=== PATIENT | male | born 1970 | race African-American/Black ===

== ENCOUNTER 2016-11-10 12:59 | Emergency (ER) | payer SELFPAY ==
[2016-11-10 13:21] VITALS: BP 190/106
--- NOTE | 2016-11-10 13:51 | ER Document Report ---
HPI - HPI Patient complains to provider of: Right eyelid swelling Onset: Other - 3 days Onset/Duration: Persistent Quality of pain: Achy Pain Level: 4 Context: Patient presents complaining of right eyelid swelling for the past 3 days. Patient also complains of right shoulder joint pain for several months. Patient also states he has a history of hypertension has been out of medication as he does not currently have insurance. Patient denies any new shoulder injury. Patient denies any contact lens use. Patient does state that he has previous history of stye to his right eyelid that previously required surgery. Associated Symptoms: Other - Right eyelid swelling, right shoulder joint pain Exacerbated by: Movement Relieved by: Denies Similar symptoms previously: Yes Recently seen / treated by doctor: No - ROS ROS below otherwise negative: Yes Systems Reviewed and Negative: Yes All other systems reviewed and negative - CONSTITUTIONAL Constitutional: DENIES: Fever, Chills - EENT EENT: REPORTS: Eye problems - NEURO Neurology: DENIES: Headache - CARDIOVASCULAR Cardiovascular: DENIES: Chest pain - RESPIRATORY Respiratory: DENIES: Trouble Breathing, Coughing - GASTROINTESTINAL Gastrointestinal: DENIES: Abdominal Pain - MUSCULOSKELETAL Musculoskeletal: REPORTS: Extremity pain. 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 Lives with: Family Family History: Reviewed & Not Pertinent Patient has suicidal ideation: No Patient has homicidal ideation: No - Past Medical History Cardiac Medical History: Reports: Hx Hypertension - NOT ON MEDS BECAUSE THEY ARE TOO EXPENSIVE Renal/ Medical History: Denies: Hx Peritoneal Dialysis Infectious Medical History: Denies: Hx MRSA Past Surgical History: Reports: Hx Herniorrhaphy - Immunizations Immunizations up to date: Yes Hx Diphtheria, Pertussis, Tetanus Vaccination: Yes Vertical Provider Document - CONSTITUTIONAL Agree With Documented VS: Yes Exam Limitations: No Limitations General Appearance: WD/WN, No Apparent Distress - INFECTION CONTROL TRAVEL OUTSIDE OF THE [place] IN LAST 30 DAYS: No - HEENT HEENT: Atraumatic, Normocephalic - NECK Neck: Normal Inspection, Supple - RESPIRATORY Respiratory: Breath Sounds Normal, No Respiratory Distress O2 Sat by Pulse Oximetry: 99 - CARDIOVASCULAR Cardiovascular: Regular Rate, Regular Rhythm Pulses: Normal: Radial - BACK Back: Normal Inspection - MUSCULOSKELETAL/EXTREMETIES Musculoskeletal/Extremeties: MAEW, FROM, Tender - Right shoulder joint tenderness over AC joint with abduction, no deformity or dislocation Course - Re-evaluation Re-evalutation: 11/10/16 13:54 The patient has been informed that they may have pre-hypertension or hypertension based on a blood pressure reading in the emergency department. I recommend that patient call the primary care provider listed on their discharge instructions or a physician of their choice by this week to arrange follow-up for further evaluation of possible pre-hypertension or hypertension. - Vital Signs Vital signs: Temp Pulse Resp BP Pulse Ox 98.5 F 81 16 190/106 H 99 11/10/16 13:12 11/10/16 13:12 11/10/16 13:12 11/10/16 13:12 11/10/16 13:12 - Diagnostic Test Radiology reviewed: Reports reviewed - Reviewed patient's x-ray report of his shoulder joint from 08/03/2015 Discharge - Discharge Clinical Impression: Hx of essential hypertension, Chronic right shoulder pain Sty Qualifiers: Laterality: right Eyelid: upper Qualified Code(s): H00.011 - Hordeolum externum right upper eyelid Condition: Stable Disposition: HOME, SELF-CARE Instructions: High Blood Pressure ([facility]), Shoulder Injury ([facility]), Sty ([facility]), Warm Packs ([facility]) Additional Instructions: Return immediately for any new or worsening symptoms Followup with your primary care provider, call tomorrow to make a followup appointment Follow-up with control systems specialist for any continued eye problems Apply warm compresses to eye frequently Follow-up with orthopedic doctor for further evaluation of chronic shoulder joint pain Prescriptions: Erythromycin Base [Erythromycin] 1 applic OP QID #3.5 oint..gm. Lisinopril/Hydrochlorothiazide [Lisinopril-Hctz 10-12.5 mg Tab] 1 each PO DAILY #30 tablet Forms: Elevated Blood Pressure, Return to Work Referrals: [facility] [Provider Group] - Follow up as needed [facility] [Provider Group] - Follow up in 1 week [facility] [Provider Group] - Follow up tomorrow [facility] [Provider Group] - Follow up tomorrow
== END 2016-11-10 14:18 | disposition home or self-care (01) ==
LOC: ER 12:59
DX: H00.011 Hordeolum externum right upper eyelid (principal); G89.29 Other chronic pain; M25.511 Pain in right shoulder; I10 Essential (primary) hypertension; T46.5X6A Underdosing of other antihypertensive drugs, initial encounter; Z91.120 Patient's intentional underdosing of medication regimen due to financial hardship; Z91.14 Patient's other noncompliance with medication regimen; Z98.890 Other specified postprocedural states
CPT/HCPCS: 99283

== ENCOUNTER 2017-07-09 21:20 | Emergency (ER) | payer SELFPAY ==
--- NOTE | 2017-07-09 22:56 | ER Document Report ---
ED General - General Chief Complaint: High Blood Pressure Stated Complaint: POSSIBLE HIGH BLOOD PRESSURE Time Seen by Provider: 07/09/17 22:53 Notes: Patient is a 47-year-old male who presents with complaint of intermittent headache for last 3 days. Gradual onset. It was relieved with BC powder. He also has had some intermittent mild chest pain left side. Says it is not severe. Says mild. It is not exacerbated by exertion. No associated shortness of breath or diaphoresis. Patient says blood pressures been running high. He has been on blood pressure medication but spent several months since she has had any. He does not have a local doctor. He said he [facility] but does not see them anymore. He does not remember the name of the blood pressure medications he used to be on. He has no history of cardiac disease. He has no other medical problems other than high blood pressure. No other complaints. He is currently chest pain-free. TRAVEL OUTSIDE OF THE [place] IN LAST 30 DAYS: No - Related Data Allergies/Adverse Reactions: No Known Allergies Allergy (Unverified 05/20/11 16:24) Past Medical History - Social History Smoking Status: Never Smoker Chew tobacco use (# tins/day): No Frequency of alcohol use: Rare Drug Abuse: None Family History: Reviewed & Not Pertinent Patient has suicidal ideation: No Patient has homicidal ideation: No - Past Medical History Cardiac Medical History: Reports: Hx Hypertension - NOT ON MEDS BECAUSE THEY ARE TOO EXPENSIVE Renal/ Medical History: Denies: Hx Peritoneal Dialysis Infectious Medical History: Denies: Hx MRSA Past Surgical History: Reports: Hx Herniorrhaphy - Immunizations Immunizations up to date: Yes Hx Diphtheria, Pertussis, Tetanus Vaccination: Yes Review of Systems - Review of Systems Notes: My Normal Review Basic REVIEW OF SYSTEMS: CONSTITUTIONAL : Denies fever, chills, or sweats. Denies recent illness. CARDIOVASCULAR: Chest pain RESPIRATORY: Denies cough, cold, or chest congestion. Denies shortness of breath, difficulty breathing, or wheezing. GASTROINTESTINAL: Denies abdominal pain. Denies nausea, vomiting, or diarrhea. Denies constipation. Last BM: GENITOURINARY: Denies difficulty urinating, painful urination, burning, frequency, or blood in urine. MUSCULOSKELETAL: Denies neck or back pain or joint pain or swelling. SKIN: Denies rash or skin lesions. NEUROLOGICAL: Denies altered mental status or loss of consciousness. Intermittent headache. Denies weakness or paralysis or loss of use of either side. Denies problems with gait or speech. Denies sensory or motor loss. ALL OTHER SYSTEMS REVIEWED AND NEGATIVE. Physical Exam - Vital signs Vitals: Temp Pulse Resp BP Pulse Ox 98.0 F 73 16 179/111 H 97 07/09/17 21:30 07/09/17 21:30 07/09/17 21:30 07/09/17 21:30 07/09/17 21:30 - Notes Notes: General Appearance: Well nourished, alert, cooperative, no acute distress, no obvious discomfort. Well-appearing. Vitals: reviewed, See vital signs table. Head: no swelling or tenderness to the head Eyes: PERRL, EOMI, Conjuctiva clear Mouth: No decreasd moisture Lungs: No wheezing, No rales, No rhonci, No accessory muscle use, good air exchange bilaterally. Heart: Normal rate, Regular rythm, No murmur, no rub Abdomen: Normal BS, soft, No rigidity, No abdominal tenderness, No guarding, no rebound, no abdominal masses, no organomegaly Extremities: strength 5/5 in all extremities, good pulses in all extremities, no swelling or tenderness in the extremities, no edema. Skin: warm, dry, appropriate color, no rash Neuro: speech clear, oriented x 3, normal affect, responds appropriately to questions. Cranial nerves II through XII are intact. Distal sensation intact. Patient moves all extremities without difficulty. Good strength in all 4 extremities. No focal neurologic deficits on exam. Course - Re-evaluation Re-evalutation: 07/10/17 05:36 Patient's laboratory evaluation was negative. His troponin is negative. He has no current chest pain and no current headache. I suspect that most likely her symptoms are related to his uncontrolled high blood pressure. I will place him on amlodipine and hydrochlorothiazide. Says he is followed by the [facility] has not been there in some time. He said they informed him if he calls him next appointment they would be able get him in being that he is already established. Patient said he would call to make a follow-up appointment. I talked to him and his at length about the importance of him taking his medications to help control his blood pressure as prolonged hypertension could eventually lead to stroke and [place]. Patient and his girlfriend show understanding of this and the patient agrees to start taking his medications as prescribed. I strongly encourage him return to ER if he has recurrent worsening chest pain, severe headache, vomiting, or feels unwell. Patient agrees with plan will be discharged home. Dictation of this chart was performed using voice recognition software; therefore, there may be some unintended grammatical errors. - Vital Signs Vital signs: Temp Pulse Resp BP Pulse Ox 98.0 F 73 18 171/106 H 98 07/09/17 21:30 07/09/17 21:30 07/10/17 00:01 07/10/17 00:01 07/10/17 00:01 - Laboratory Result Diagrams: 07/09/17 23:16 07/09/17 23:16 Laboratory results interpreted by me: 07/09/17 07/09/17 23:16 23:16 RBC 4.29 L Hgb 13.1 L Seg Neutrophils % 35.0 L Lymphocytes % 49.8 H Creatinine 1.33 H Est GFR (Non-Af Amer) 58 L - EKG Interpretation by Me Additional EKG results interpreted by me: 07/09/17 22:55 EKG is reviewed and interpreted by me. EKG shows sinus rhythm with a rate of [address] segment elevation or depression. Patient does have small T-wave inversion in lead V5. [place] interval, QRS duration, QTc intervals are within normal range. Old EKG for comparison is from May 20, 2015 shows the same T- wave inversion as a current EKG. Discharge - Discharge Clinical Impression: Hypertension Qualifiers: Hypertension type: unspecified Qualified Code(s): I10 - Essential (primary) hypertension Headache Qualifiers: Headache type: unspecified Headache chronicity pattern: episodic headache Intractability: not intractable Qualified Code(s): R51 - Headache Chest pain Qualifiers: Chest pain type: unspecified Qualified Code(s): R07.9 - Chest pain, unspecified Condition: Good Disposition: HOME, SELF-CARE Additional Instructions: HEADACHE: The physician does not feel that the headache you are experiencing has a serious underlying cause. Most headaches are due to emotional stress, with resultant muscle tension (tension headache). Occasionally, headaches are secondary to changes in the blood vessels of the scalp (vascular headache and migraine headache). Sometimes, a headache is the first symptom of another developing illness, such as a viral infection. You have no evidence of stroke, bleeding, meningitis, or other serious cause of your headache. The treatment of headaches varies with the severity and cause of the pain. Not all headaches need pain shots. In fact, there is evidence that using narcotics for headaches may make them worse in the long run. The physician will determine the therapy that's in your best interest. If you develop a fever, if the headache is different from any you've previously experienced, or if the headache progressively worsens, then call your physician at once or go to the emergency room. FOLLOW-UP CARE: If you have been referred to a physician for follow-up care, call the physician s office for an appointment as you were instructed or within the next two days. If you experience worsening or a significant change in your symptoms, notify the physician immediately or return to the Emergency Department at any time for re-evaluation. Please fill the prescriptions and take the medications as prescribed. Please [facility] with [facility] for close follow up and continued management of your blood pressure. Please return tot eh ER immediately if you develop recurrent headahces, recurrent chest pain, or feel unwell. Prescriptions: Amlodipine Besylate 5 mg PO DAILY #30 tab Hydrochlorothiazide 25 mg PO DAILY #30 tablet Forms: Return to Work
[2017-07-09] MEDS ORDERED: AMLODIPINE BESYLATE 5 MG TABLET PO ONE (23:00)
[2017-07-09] MEDS ORDERED: HYDROCHLOROTHIAZIDE 25 MG TABLET PO ONE (23:01)
[2017-07-09 23:24] LABS: ABSOLUTE BASOPHILS # (AUTO) 0.1 10^3/uL (0.0-0.2); ABSOLUTE MONOCYTES (AUTO) 0.6 10^3/uL (0.1-1.4); HEMATOCRIT 38.8 % (37.9-51.0); HEMOGLOBIN 13.1 g/dL (13.5-17.0); MEAN CORPUSCULAR HGB CONC 33.8 g/dL (32.0-36.0); RED BLOOD COUNT 4.29 10^6/uL (4.35-5.55); TOTAL CELLS COUNTED % (AUTO) 100 %
[2017-07-09 23:31] LABS: ABSOLUTE EOSINOPHILS # (AUTO) 0.2 10^3/uL (0.0-0.6); ABSOLUTE LYMPHOCYTES (AUTO) 2.9 10^3/uL (0.5-4.7); EOSINOPHILS % (AUTO) 4.2 % (0-6); LYMPHOCYTES % (AUTO) 49.8 % (13-45); MEAN CORPUSCULAR HEMOGLOBIN 30.6 pg (27.0-33.4); MEAN CORPUSCULAR VOLUME 90 fl (80-97); PLATELET COUNT 204 10^3/uL (150-450); RED CELL DISTRIBUTION WIDTH 13.7 % (11.5-14.0); WHITE BLOOD COUNT 5.8 10^3/uL (4.0-10.5)
--- NOTE | 2017-07-09 23:39 | EKG REPORT ---
SEVERITY:- BORDERLINE ECG - SINUS RHYTHM BORDERLINE T WAVE ABNORMALITIES : Confirmed by: Carson Saleem 09-Jul-2017 23:37:53
[2017-07-09 23:43] LABS: ANION GAP 7 (5-19); BLOOD UREA NITROGEN 20 mg/dL (7-20); CALCIUM 9.2 mg/dL (8.4-10.2); CARBON DIOXIDE 30 mmol/L (22-30); CHLORIDE 105 mmol/L (98-107); GLUCOSE 93 mg/dL (75-110); SODIUM 142.4 mmol/L (137-145)
--- NOTE | 2017-07-09 23:57 | RADIOLOGY REPORT (SQ) ---
EXAM DESCRIPTION: CHEST SINGLE VIEW COMPLETED DATE/TIME: 07/09/2017 11:16 pm REASON FOR STUDY: chest pain COMPARISON: 05/20/2015 EXAM PARAMETERS: NUMBER OF VIEWS: One view. TECHNIQUE: Single frontal radiographic view of the chest acquired. RADIATION DOSE: NA LIMITATIONS: None. FINDINGS: LUNGS AND PLEURA: No acute opacities, masses or pneumothorax. No pleural effusion. MEDIASTINUM AND HILAR STRUCTURES: Stable. HEART AND VASCULAR STRUCTURES: Heart normal in size. Normal vasculature. BONES: No acute findings. HARDWARE: None in the chest. OTHER: No other significant finding. IMPRESSION: NO ACUTE RADIOGRAPHIC FINDING IN THE CHEST. TECHNICAL DOCUMENTATION: JOB ID: [id number] [place]-72 2010 [employer]- All Rights Reserved Reading location - IP/workstation name: [email or web address]
[2017-07-10 00:28] VITALS: BP 171/106
== END 2017-07-10 00:31 | disposition home or self-care (01) ==
LOC: ER 21:20
DX: R51 Headache (principal); R07.9 Chest pain, unspecified; I10 Essential (primary) hypertension
CPT/HCPCS: 36415; 71045; 80048; 84484; 85025; 93005; 93010; 99284

== ENCOUNTER 2017-07-11 12:21 | Emergency (ER) | payer SELFPAY ==
[2017-07-11] MEDS ORDERED: MECLIZINE HCL 25 MG TABLET PO ONE (13:58)
[2017-07-11] MEDS ORDERED: LISINOPRIL 10 MG TABLET PO ONE (14:04)
--- NOTE | 2017-07-11 14:06 | ER Document Report ---
ED Blood Pressure Problem - General Chief Complaint: Blood Pressure Problem Stated Complaint: NAUSEA,DIZZY Time Seen by Provider: 07/11/17 13:45 Mode of Arrival: Ambulatory Information source: Patient, [facility] Records Notes: This 47-year-old male hypertensive patient reports onset of dizziness this morning when he stands up. He also has some nausea. He complains of headaches made worse by the blood pressure medication he is taking now. He was seen here 2 days ago complaining of headaches for the past 3 days and elevated blood pressure. At that time he was prescribed amlodipine 5 mg daily and her chlorothiazide 25 mg daily. He was not taking any medication at that time. He states he used to be on a medication that controlled his pressure that he received from the [facility]. He also reports he feels a prescription at [facility]. Phone call to [facility] and review of external pharmacies that the nurses are able to access shows he never filled any prescription at [facility], or any other pharmacy. He received prescriptions for lisinopril 10 mg/hydrochlorothiazide 12.5 mg in the emergency room in 2015 and 2016, but likely never filled those prescriptions. He notes when his head is hurting it is mostly frontal, and massaging his forehead and temporal area seems to help some. The patient does report that he had a brother with hypertension who had lip swelling related to medicine. His significant other is fairly certain that the drug was lisinopril. Review of the record shows that this patient has been given lisinopril once in 2013 in the emergency room in addition to the prescriptions which may or may not have ever been filled. At this time it is not possible to know if he was given lisinopril samples at the [facility]. TRAVEL OUTSIDE OF THE [place] IN LAST 30 DAYS: No - Related Data Allergies/Adverse Reactions: No Known Allergies Allergy (Verified 07/11/17 13:31) Past Medical History - General Information source: Patient, [facility] Records - Social History Smoking Status: Never Smoker Cigarette use (# per day): No Chew tobacco use (# tins/day): No Smoking Education Provided: No Frequency of alcohol use: None Drug Abuse: None Lives with: Spouse/Significant other Family History: Reviewed & Not Pertinent Patient has suicidal ideation: No Patient has homicidal ideation: No - Past Medical History Cardiac Medical History: Reports: Hx Hypertension Pulmonary Medical History: Reports: None EENT Medical History: Reports: None Neurological Medical History: Reports: None Endocrine Medical History: Reports: None Renal/ Medical History: Reports: None GI Medical History: Reports: None Musculoskeltal Medical History: Reports None Skin Medical History: Reports None Psychiatric Medical History: Reports: None Past Surgical History: Reports: Hx Herniorrhaphy - Immunizations Immunizations up to date: Yes Hx Diphtheria, Pertussis, Tetanus Vaccination: Yes Review of Systems - Review of Systems Constitutional: No symptoms reported EENT: No symptoms reported Cardiovascular: No symptoms reported Respiratory: No symptoms reported Gastrointestinal: No symptoms reported Genitourinary: No symptoms reported Musculoskeletal: No symptoms reported Skin: No symptoms reported Hematologic/Lymphatic: No symptoms reported Neurological/Psychological: See HPI, Headaches Physical Exam - Vital signs Vitals: Temp Pulse Resp BP Pulse Ox 98.2 F 72 18 166/110 H 99 07/11/17 12:31 07/11/17 12:31 07/11/17 12:31 07/11/17 12:31 07/11/17 12:31 Interpretation: Hypertensive - HEENT Head: Normocephalic, Atraumatic, Tenderness - There is some tenderness to palpate the forehead muscles above the eyebrows and along the supraorbital ridges and in the temporal areas., Other - Rapid head movement looking back and forth and up and down provokes the dizzy symptoms and some nystagmus. Eyes: Normal Pupils: PERRL Sinus: Other - There is no tenderness to palpate the inner canthi for sphenoid sinuses, no tenderness to palpate the anterior maxillary sinus region or to percuss over the frontal sinuses Pharynx: Normal Neck: Normal - Respiratory Respiratory status: No respiratory distress - Cardiovascular Rhythm: Regular - Abdominal Inspection: Normal - Back Back: Normal - Extremities General upper extremity: Normal inspection General lower extremity: Normal inspection - Neurological Neuro grossly intact: Yes - Psychological Associated symptoms: Normal affect, Normal mood - Skin Skin Temperature: Warm Skin Moisture: Dry Skin Color: Normal Course - Re-evaluation Re-evalutation: 07/11/17 14:14 Patient will be given Antivert 50 mg, and lisinopril 20 mg, he will be observed for about 45 minutes and then recheck his dizziness and blood pressure. 07/11/17 15:37 Patient reports the dizziness is better, and after rapid head movement he can tell a significant difference. He reports there is only just a slight hint of dizziness at this time. His blood pressure has come down some since the lisinopril. I will prescribe the patient Antivert, lisinopril 20 mg daily, continue the amlodipine, break HIDA chlorothiazide in half and take once daily. 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 - Vital Signs Vital signs: Temp Pulse Resp BP Pulse Ox 98.7 F 100 18 157/105 H 99 07/11/17 15:27 07/11/17 15:27 07/11/17 15:27 07/11/17 15:27 07/11/17 15:27 Discharge - Discharge Clinical Impression: Vertigo Hypertension Qualifiers: Hypertension type: essential hypertension Qualified Code(s): I10 - Essential ( primary) hypertension Tension type headache Qualifiers: Headache chronicity pattern: unspecified pattern Intractability: not intractable Qualified Code(s): G44.209 - Tension-type headache, unspecified, not intractable Condition: Stable Disposition: HOME, SELF-CARE Additional Instructions: Vertigo: You have experienced an episode of vertigo -- a whirling dizziness which may be accompanied by nausea and vomiting or staggering. Vertigo is often caused by an irritation of the inner ear, in which case it is called labyrinthitis. It can also be a symptom of a degenerating inner ear, nerve damage, or brain injury. Your physician has evaluated you to determine whether any further testing is necessary. Vertigo is often treated with dramamine or meclizine. These medications are helpful, but stronger medication may be needed if you are vomiting. Rest in bed. You should not drive or operate machinery until completely better. It may take one to three weeks for recovery. If there are new symptoms, such as decreased hearing or vision, severe headache, weakness or faintness, or confusion, call the physician. Take the meclizine as prescribed for the dizziness. Take precautions against fall or injury if you are feeling dizzy. Start the lisinopril as prescribed tomorrow. Continue taking the amlodipine every day. Reduce the hydrochlorothiazide to one half tablet(12.5mg) once daily. Drink plenty of water every day. Check your blood pressure twice daily for the next several days. If you notice the pressure is getting below 120 for the top number, then stop take the amlodipine. Follow-up with a local medical doctor or [facility] for ongoing management of your high blood pressure. Be sure you see someone before you run out of the medications. RETURN TO THE EMERGENCY ROOM IF ANY NEW OR WORSENING SYMPTOMS. Prescriptions: Lisinopril 20 mg PO DAILY #30 tablet Meclizine HCl [Antivert 25 mg Tablet] 25 mg PO TID PRN #25 tablet PRN Reason:
[2017-07-11 15:28] VITALS: BP 157/105
== END 2017-07-11 15:52 | disposition home or self-care (01) ==
LOC: ER 12:21
DX: G44.209 Tension-type headache, unspecified, not intractable (principal); R42 Dizziness and giddiness; I10 Essential (primary) hypertension; R11.0 Nausea; Z79.899 Other long term (current) drug therapy
CPT/HCPCS: 99284

== ENCOUNTER 2017-12-24 19:34 | Emergency (ER) | payer OTHER ==
[2017-12-24] MEDS ORDERED: IBUPROFEN 800 MG TABLET PO ONE (20:02)
--- NOTE | 2017-12-24 20:05 | ER Document Report ---
HPI - HPI Pain Level: 4 Notes: Patient is a 47-year-old male with a history of hypertension who presents to the ED complaining of a left wrist pain status post injury while at work. Patient states that he was holding furniture when another piece of furniture started to fall backwards towards him. Patient states that he maintain hold of his furniture, but it twisted his wrist causing pain. Patient states that he has had swelling since then. The pain does not radiate. Denies drug allergies. Denies any IV drug use. Denies any headache, fever, head injury, neck pain, URI, sore throat, chest pain, palpitations, syncope, cough, shortness of breath, wheeze, dyspnea, abdominal pain, nausea/vomiting/diarrhea, urinary retention, dysuria, hematuria, numbness/tingling, muscle paralysis/ weakness, or rash. - ROS Systems Reviewed and Negative: Yes All other systems reviewed and negative <HARI ANAYA - Last Filed: 12/24/17 20:43> Past Medical History - Social History Smoking Status: Never Smoker Family History: Reviewed & Not Pertinent - Past Medical History Cardiac Medical History: Reports: Hx Hypertension Renal/ Medical History: Denies: Hx Peritoneal Dialysis Infectious Medical History: Denies: Hx MRSA Past Surgical History: Reports: Hx Herniorrhaphy - Immunizations Immunizations up to date: Yes Hx Diphtheria, Pertussis, Tetanus Vaccination: Yes <HARI ANAYA - Last Filed: 12/24/17 20:43> Vertical Provider Document - CONSTITUTIONAL Agree With Documented VS: Yes Notes: PHYSICAL EXAMINATION: GENERAL: Well-appearing, well-nourished and in no acute distress. LUNGS: Breath sounds clear to auscultation bilaterally and equal. No wheezes rales or rhonchi. HEART: Regular rate and rhythm without murmurs, rubs, gallops. Musculoskeletal: Left wrist: FROM to passive/active. Strength 5+/5. N/V intact distal. + swelling noted to the distal ulnar side with + tenderness associated. No proximal forearm tenderness or bony tenderness to the hand otherwise. Extremities: No cyanosis, clubbing, or edema b/l. Peripheral pulses 2+. Capillary refill less than 3 seconds. NEUROLOGICAL: Normal speech, normal gait. Normal sensory, motor exams PSYCH: Normal mood, normal affect. SKIN: Warm, Dry, normal turgor, no rashes or lesions noted. - INFECTION CONTROL TRAVEL OUTSIDE OF THE U.S. IN LAST 30 DAYS: No <HARI ANAYA - Last Filed: 12/24/17 20:43> Course - Re-evaluation Re-evalutation: 12/24/17 20:12 Pt has not taken his BP med (lisinopril 20mg) today. Lisinopril ordered. 12/24/17 20:20 Patient is an afebrile, well-hydrated, 47-year-old male who presents to the ED with left wrist pain which I suspect to be a sprain versus strain. Vitals are acceptable without any significant tachycardia, tachypnea, or hypoxia. PE is otherwise unremarkable for any neurovascular compromise, obvious tendon/ ligament rupture, obvious fracture/dislocation, septic joint. X-ray was unremarkable for any acute pathology. Cock-up splint provided today. Motrin given PO. Patient is nontoxic-appearing. No other labs or imaging warranted at this time based on H&P. Conservative measures otherwise for symptoms. Recheck with your PCM in 3-5 days. Consider consult orthopedics. Return to the ED with any worsening/concerning symptoms otherwise as reviewed in discharge. Patient is in agreement. 12/24/17 20:30 Pt's BP upon discharge was 180's/112. Reviewed with Dr. Martinez. Pt is asymptomatic otherwise. He just received lisinopril recently. Dr. Martinez recommends Clonidine 0.1mg PO and recheck in 30mins-1hr. If under 100 diastolic we can discharge. Pt in agreement. 12/24/17 20:37 Joss DIESEL ENGINE TESTER will monitor BP and discharge if acceptable as above. - Vital Signs Vital signs: Temp Pulse Resp BP Pulse Ox 98.7 F 66 16 183/102 H 98 12/24/17 19:56 12/24/17 19:56 12/24/17 19:56 12/24/17 19:56 12/24/17 19:56 <HARI ANAYA - Last Filed: 12/24/17 20:43> - Re-evaluation Re-evalutation: 12/24/17 21:33 Blood pressure was 181/103 at discharge. Patient denied any headache or any other symptoms from his blood pressure. Patient states he has not been to a doctor in a couple years. He states he has not taken blood pressure medicine in over a month. The last blood pressure medicine he got in the emergency room here. states she has been after him constantly to go and be seen and get out back on blood pressure medicine. Patient was discharged home with a business card from Korey Frederick the conservation planner and Jaida Guevara the financial counselor to ensure that he gets follow-up. states she would tell both of those as well as care in [facility] and [facility] to try to get him in for follow-up as soon as possible. - Vital Signs Vital signs: Temp Pulse Resp BP Pulse Ox 98.7 F 66 16 180/112 H 98 12/24/17 19:56 12/24/17 19:56 12/24/17 19:56 12/24/17 21:14 12/24/17 19:56 <DERRELL BECERRA - Last Filed: 12/24/17 21:36> Discharge <HARI ANAYA - Last Filed: 12/24/17 20:43> <DERRELL BECERRA - Last Filed: 12/24/17 21:36> - Discharge Clinical Impression: Left wrist pain, Elevated blood pressure reading Condition: Stable Disposition: HOME, SELF-CARE Instructions: Family Physicians / Practices Additional Instructions: Rest, Ice, Compression, Elevation Use splint as directed Tylenol/ibuprofen as needed Light stretches daily Strength exercises as able Moist heat and massage may help F/u with your PCP in 3-5 days for a recheck Consider consult(s) with Orthopedics/physical therapy for ongoing/worsening symptoms Return to the ED with any worsening symptoms and/or development of fever, headache, chest pain, palpitations, syncope, shortness of breath, trouble breathing, abdominal pain, n/v/d, muscle weakness/paralysis, numbness/tingling, swelling, redness, or other worsening symptoms that are concerning to you. Prescriptions: Lisinopril 20 mg PO DAILY #30 tablet Forms: Elevated Blood Pressure Referrals: [facility] [Provider Group] - Follow up as needed [facility] [Provider Group] - Follow up as needed
[2017-12-24] MEDS ORDERED: LISINOPRIL 10 MG TABLET PO ONE (20:12)
--- NOTE | 2017-12-24 20:18 | RADIOLOGY REPORT (SQ) ---
EXAM DESCRIPTION: WRIST LEFT 3 VIEWS COMPLETED DATE/TIME: 12/24/2017 8:10 pm REASON FOR STUDY: left wrist pain s/p injury COMPARISON: None. NUMBER OF VIEWS: Three views. TECHNIQUE: AP, lateral, and oblique radiographic images acquired of the left wrist. LIMITATIONS: None. FINDINGS: MINERALIZATION: Normal. BONES: No acute fracture or dislocation. No worrisome bone lesions. Normal alignment. SOFT TISSUES: No soft tissue swelling. No foreign body. OTHER: No other significant finding. IMPRESSION: NEGATIVE STUDY OF THE LEFT WRIST. NO RADIOGRAPHIC EVIDENCE OF ACUTE INJURY. TECHNICAL DOCUMENTATION: JOB ID: [id number] [employer]- All Rights Reserved Reading location - IP/workstation name: [email or web address]
[2017-12-24] MEDS ORDERED: CLONIDINE HCL 0.1 MG TABLET PO ONE (20:29)
[2017-12-24 21:33] VITALS: BP 181/103
== END 2017-12-24 21:34 | disposition home or self-care (01) ==
LOC: ER 19:34
DX: M25.532 Pain in left wrist (principal); X58.XXXA Exposure to other specified factors, initial encounter; Y99.0 Civilian activity done for income or pay; I10 Essential (primary) hypertension
CPT/HCPCS: 99283; 73110; L3908

== ENCOUNTER 2019-02-10 09:04 | Emergency (ER) | payer SELFPAY ==
[2019-02-10] MEDS ORDERED: IPRATROPIUM/ALBUTEROL 0.5-2.5 MG/3 ML AMPUL NEB ONE (09:17)
--- NOTE | 2019-02-10 09:24 | ER Document Report ---
ED Medical Screen (RME) - General Chief Complaint: Cough Stated Complaint: COUGH AND CONGESTION Time Seen by Provider: 02/10/19 09:14 Mode of Arrival: Ambulatory Information source: Patient TRAVEL OUTSIDE OF THE U.S. IN LAST 30 DAYS: No - HPI Notes: 02/10/19 09:24 48-year-old male presents to the ED for complaints of a productive cough, shortness of breath for the last week. Patient states he is tried [id number] remedies without relief. Patient's blood pressure today is elevated with 218/122, patient states has been out of his blood pressure medication for the last week. Patient states he has not been seen by primary care for over the last 6 months, was not able to tell me what medications he was taking, states he was also taking some of his "friend's medication for his blood pressure". Patient is non-smoker. Denies parents having hypertensive issues. Denies any illicit drug use. Patient is a poor historian CV: S1, S2, regular Resp: diminished BS in BUL Neuro: awake, alert, orientated x 3, speech clear. normal gait I have greeted and performed a rapid initial assessment of this patient. A comprehensive ED assessment and evaluation of the patient, analysis of test results and completion of medical decision making process will be conducted by an additional ED providers. - Related Data Allergies/Adverse Reactions: No Known Allergies Allergy (Verified 12/24/17 20:20) Past Medical History - Past Medical History Cardiac Medical History: Reports: Hx Hypertension Renal/ Medical History: Denies: Hx Peritoneal Dialysis Infectious Medical History: Denies: Hx MRSA Past Surgical History: Reports: Hx Herniorrhaphy - Immunizations Immunizations up to date: Yes Hx Diphtheria, Pertussis, Tetanus Vaccination: Yes
--- NOTE | 2019-02-10 09:32 | ER Document Report ---
ED Medical Screen (RME) - General Chief Complaint: Nonproductive Cough Stated Complaint: COUGH AND CONGESTION Time Seen by Provider: 02/10/19 09:14 Mode of Arrival: Ambulatory TRAVEL OUTSIDE OF THE [place]. IN LAST 30 DAYS: No - HPI Notes: 02/10/19 09:31 Patient denies any chest pain, numbness or tingling down arms or legs, speec changes, vision changes. patient states he only has a headache when he coughs. No facial droop. 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 Patient has a longstanding history of hypertension - Related Data Allergies/Adverse Reactions: No Known Allergies Allergy (Verified 12/24/17 20:20) Past Medical History - Social History Chew tobacco use (# tins/day): No Frequency of alcohol use: Occasional Drug Abuse: None - Past Medical History Cardiac Medical History: Reports: Hx Hypertension Renal/ Medical History: Denies: Hx Peritoneal Dialysis Infectious Medical History: Denies: Hx MRSA Past Surgical History: Reports: Hx Herniorrhaphy - Immunizations Immunizations up to date: Yes Hx Diphtheria, Pertussis, Tetanus Vaccination: Yes Physical Exam - Vital signs Vitals: Temp Pulse Resp BP Pulse Ox 98.1 F 94 18 218/122 H 96 02/10/19 09:22 02/10/19 09:22 02/10/19 09:22 02/10/19 09:22 02/10/19 09:22 Course - Vital Signs Vital signs: Temp Pulse Resp BP Pulse Ox 98.1 F 94 18 194/121 H 96 02/10/19 09:22 02/10/19 09:22 02/10/19 09:22 02/10/19 09:25 02/10/19 09:22
[2019-02-10 10:03] LABS: ABSOLUTE EOSINOPHILS # (AUTO) 0.1 10^3/uL (0.0-0.6); ABSOLUTE LYMPHOCYTES (AUTO) 1.5 10^3/uL (0.5-4.7); ABSOLUTE MONOCYTES (AUTO) 0.7 10^3/uL (0.1-1.4); ABSOLUTE NEUT (AUTO) 1.8 10^3/uL (1.7-8.2); BASOPHILS % (AUTO) 0.9 % (0-2); EOSINOPHILS % (AUTO) 2.5 % (0-6); MEAN CORPUSCULAR HEMOGLOBIN 31.5 pg (27.0-33.4); MEAN CORPUSCULAR HGB CONC 34.1 g/dL (32.0-36.0); MEAN CORPUSCULAR VOLUME 92 fl (80-97); MONOCYTES % (AUTO) 17.5 % (3-13); PLATELET COUNT 219 10^3/uL (150-450); RED BLOOD COUNT 4.76 10^6/uL (4.35-5.55); RED CELL DISTRIBUTION WIDTH 13.9 % (11.5-14.0); SEGMENTED NEUTROPHILS % (AUTO) 43.1 % (42-78); TOTAL CELLS COUNTED % (AUTO) 100 %; WHITE BLOOD COUNT 4.1 10^3/uL (4.0-10.5)
[2019-02-10 10:06] LABS: APPEARANCE,URINE CLEAR; BILIRUBIN,URINE NEGATIVE (NEGATIVE); COLOR,URINE YELLOW; GLUCOSE, URINE NEGATIVE (NEGATIVE); KETONES,URINE NEGATIVE (NEGATIVE); LEUKOCYTE ESTERASE,URINE NEGATIVE (NEGATIVE); NITRITE,URINE NEGATIVE (NEGATIVE); PROTEIN,URINE NEGATIVE (NEGATIVE); URINE SPECIFIC GRAVITY 1.017
[2019-02-10 10:24] LABS: ALBUMIN 4.3 g/dL (3.5-5.0); ALKALINE PHOSPHATASE 61 U/L (38-126); ANION GAP 6 (5-19); ASPARTATE AMINO TRANSFERASE 37 U/L (17-59); BILIRUBIN,DIRECT 0.1 mg/dL (0.0-0.4); BILIRUBIN,TOTAL 0.5 mg/dL (0.2-1.3); BLOOD UREA NITROGEN 15 mg/dL (7-20); CALCIUM 9.5 mg/dL (8.4-10.2); CARBON DIOXIDE 31 mmol/L (22-30); CHLORIDE 104 mmol/L (98-107); CREATINE KINASE 690 U/L (55-170); GLUCOSE 95 mg/dL (75-110); POTASSIUM 4.6 mmol/L (3.6-5.0); TOTAL PROTEIN 7.6 g/dL (6.3-8.2)
[2019-02-10 10:35] LABS: CREATINE KINASE MB 4.08 ng/mL (<4.55)
[2019-02-10 10:36] LABS: TROPONIN I < 0.012 ng/mL
--- NOTE | 2019-02-10 10:46 | RADIOLOGY REPORT (SQ) ---
EXAM DESCRIPTION: CHEST 2 VIEWS COMPLETED DATE/TIME: 02/10/2019 9:51 am REASON FOR STUDY: sob COMPARISON: Chest films 05/20/2015, 06/23/2013 EXAM PARAMETERS: NUMBER OF VIEWS: two views TECHNIQUE: Digital Frontal and Lateral radiographic views of the chest acquired. RADIATION DOSE: NA LIMITATIONS: none FINDINGS: LUNGS AND PLEURA: No opacities, masses or pneumothorax. No pleural effusion. MEDIASTINUM AND HILAR STRUCTURES: Tortuous uncoiled thoracic aorta. Prominent ascending aortic shado w similar compared to previous studies HEART AND VASCULAR STRUCTURES: Heart normal size. No evidence for failure. BONES: No acute findings. HARDWARE: None in the chest. OTHER: No other significant finding. IMPRESSION: NO ACUTE RADIOGRAPHIC FINDING IN THE CHEST. Prominent ascending aortic shadow, could correlate with aortic stenosis TECHNICAL DOCUMENTATION: JOB ID: [id number] [employer]- All Rights Reserved Reading location - IP/workstation name: [email or web address]
[2019-02-10] MEDS ORDERED: HYDROCHLOROTHIAZIDE 25 MG TABLET PO ONE (11:43)
[2019-02-10] MEDS ORDERED: AMLODIPINE BESYLATE 5 MG TABLET PO ONE (11:43)
--- NOTE | 2019-02-10 11:49 | ER Document Report ---
ED General - General Chief Complaint: Nonproductive Cough Stated Complaint: COUGH AND CONGESTION Time Seen by Provider: 02/10/19 09:14 Primary Care Provider: [facility] [Provider Group] - Follow up in 3-5 days Mode of Arrival: Ambulatory Information source: Patient Notes: 48-year-old male with history of high blood pressure presents emergency department with complaints of cough and some congestion for the past week. Reports he is tried ndug-bci-trovedu medications without relief of symptoms. Denies fever vomiting diarrhea. Denies smoking. Reports occasional alcohol. Denies chest pain. Denies shortness of breath. He reports he has not been t aking blood pressure medications because he was unable to afford them. He reports in the past he was prescribed amlodipine and hydrochlorothiazide. He was taking that once a day that seemed to help him. He then moved to [place] he just returned to [place]. Has not followed up with the [facility] yet. TRAVEL OUTSIDE OF THE [place]. IN LAST 30 DAYS: No - HPI Onset: Last week Onset/Duration: Persistent Associated symptoms: Nonproductive cough. 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[employer] Lives with: Family Family History: Reviewed & Not Pertinent Patient has suicidal ideation: No Patient has homicidal ideation: No - Past Medical History Cardiac Medical History: Reports: Hx Hypertension Renal/ Medical History: Denies: Hx Peritoneal Dialysis Infectious Medical History: Denies: Hx MRSA Past Surgical History: Reports: Hx Herniorrhaphy - Immunizations Immunizations up to date: Yes Hx Diphtheria, Pertussis, Tetanus Vaccination: Yes Physical Exam - Vital signs Vitals: Temp Pulse Resp BP Pulse Ox 98.1 F 94 18 218/122 H 96 02/10/19 09:22 02/10/19 09:22 02/10/19 09:22 02/10/19 09:22 02/10/19 09:22 - Notes Notes: PHYSICAL EXAMINATION: GENERAL: Well-appearing and in no acute distress HEAD: Atraumatic, normocephalic. EYES: Pupils equal round and reactive to light, extraocular movements intact, sclera anicteric, conjunctiva are normal. ENT: nares patent, oropharynx clear without exudates. Moist mucous membranes. NECK: Normal range of motion, supple without lymphadenopathy LUNGS: CTAB and equal. No wheezes rales or rhonchi. HEART: Regular rate and rhythm without murmurs ABDOMEN: Soft, no tenderness. No guarding, no rebound EXTREMITIES: Normal range of motion, no pitting edema. No cyanosis. NEUROLOGICAL: Cranial nerves grossly intact. Normal sensory/motor exams. PSYCH: Normal mood, normal affect. SKIN: Warm, Dry, normal turgor, no rashes or lesions noted Course - Re-evaluation Re-evalutation: 02/10/19 11:52 48-year-old male with history of high blood pressure presents with complaints of cough for the past week. Denies fever vomiting diarrhea. Has taken multiple swtt-wkc-clofvab medications without relief of symptoms. Patient also has a history of high blood pressure has not been taking blood pressure medications because he cannot afford them. Reports in the past he did take Norvasc and hydrochlorothiazide and that seemed to help him but he moved to [place] he just returned to [place]. Patient reports he can afford the medication tomorrow just not today. Patient creatinine 1.59 CK 690. Review of chart notes that his creatinine has been increasing with every visit. This was discussed with patient, just correlation with high blood pressure kidney function heart attacks stroke. Patient verbalized understanding to all education. 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 Reports he lifts a lot of heavy heavy boxes. Denies body pain. Reports he is voiding without any issues. Also reports he does not drink that much water. 02/10/19 09:27 02/10/19 09: MCV 92 fl (80-97) 02/10/19 09: MCH 31.5 pg (27.0-33.4) 02/10/19 09: MCHC 34.1 g/dL (32.0-36.0) 02/10/19 09: RDW 13.9 % (11.5-14.0) 02/10/19 09:27 Seg Neutrophils % 43.1 % (42-78) 02/10/19 09:27 Chloride 104 mmol/L (98-107) 02/10/19 09:27 Carbon Dioxide 31 mmol/L (22-30) H 02/10/19 09:27 Anion Gap 6 (5-19) 02/10/19 09:27 Est GFR ( Amer) 57 (>60) L 02/10/19 09:27 Glucose 95 mg/dL (75-110) 02/10/19 09:27 Calcium 9.5 mg/dL (8.4-10.2) 02/10/19 09:27 Total Bilirubin 0.5 mg/dL (0.2-1.3) 02/10/19 09:27 AST 37 U/L (17-59) 02/10/19 09:27 Alkaline Phosphatase 61 U/L (38-126) 02/10/19 09:27 Total Protein 7.6 g/dL (6.3-8.2) 02/10/19 09:27 Albumin 4.3 g/dL (3.5-5.0) 02/10/19 09:27 Urine Color YELLOW 02/10/19 09:27 Urine Appearance CLEAR 02/10/19 09:27 Urine pH 5.0 (5.0-9.0) 02/10/19 09:27 Ur Specific [place] 1.017 02/10/19 09:27 Urine Protein NEGATIVE mg/dL (NEGATIVE) 02/10/19 09:27 Urine Glucose (UA) NEGATIVE mg/dL (NEGATIVE) 02/10/19 09:27 Urine Ketones NEGATIVE mg/dL (NEGATIVE) 02/10/19 09:27 Urine Blood SMALL (NEGATIVE) H 02/10/19 09:27 Urine Nitrite NEGATIVE (NEGATIVE) 02/10/19 09:27 Ur Leukocyte Esterase NEGATIVE (NEGATIVE) 02/10/19 09:27 Urine WBC (Auto) 0 /HPF 02/10/19 09:27 Urine RBC (Auto) 2 /HPF 02/10/19 09:27 02/10/19 02/10/19 09:27 09:27 Creatine Kinase 690 H CK-MB (CK-2) 4.08 Troponin I < 0.012 Chest X-Ray 02/10/19 09:15 IMPRESSION: NO ACUTE RADIOGRAPHIC FINDING IN THE CHEST. Prominent ascending aortic shadow, could correlate with aortic stenosis 02/10/19 12:49 Patient drinking p.o. fluids without problems instructed to push fluids blood pressure decreased. He was given a prescription for amlodipine and hydrochlorothiazide. He was instructed to be careful when he takes for his cough because it can elevate his blood pressure. He denies headache reports he only gets headache when he coughs. Also denies chest pain. He was also ins tructed to follow-up with the [facility] today for appointment. He verbalized understanding to all instructions. - Vital Signs Vital signs: Temp Pulse Resp BP Pulse Ox 98.1 F 94 22 H 177/117 H 98 02/10/19 09:22 02/10/19 09:22 02/10/19 13:19 02/10/19 13:19 02/10/19 13:19 - Laboratory Result Diagrams: 02/10/19 09:27 02/10/19 09:27 Laboratory results interpreted by me: 02/10/19 02/10/19 02/10/19 09:27 09:27 09:27 Tripp % (Auto) 17.5 H Carbon Dioxide 31 H Creatinine 1.59 H Est GFR ( Amer) 57 L Est GFR (MDRD) Non-Af 47 L Creatine Kinase 690 H Urine Blood SMALL H Urine Urobilinogen 2.0 H Urine Ascorbic Acid 20 H - Diagnostic Test Radiology reviewed: Image reviewed, Reports reviewed - EKG Interpretation by Sd EKG shows normal: Sinus rhythm Rate: Normal Rhythm: NSR Additional EKG results interpreted by me: 02/10/19 11:[address] elevation no T wave inversion Discharge - Discharge Clinical Impression: Cough High blood pressure Qualifiers: Hypertension type: unspecified Qualified Code(s): I10 - Essential (primary) hypertension Condition: Stable Disposition: HOME, SELF-CARE Instructions: Calcium Channel Blockers (OM), [facility], Diuretic (OM), High Blood Pressure, Requiring Treatment (OM) Additional Instructions: *You have been evaluated for cough, congestion, high blood pressure *Increase fluid intake, monitor your diet *Take medication as prescribed *Monitor your blood pressure *Monitor your temperature, take Tylenol as indicated *Follow up with the [facility] within one week, call for an appointment *Return to ED for worsening condition, changes, needs, difficulty breathing, concerns Prescriptions: Hydrochlorothiazide [Hydrodiuril 25 mg Tablet] 25 mg PO QAM #30 tablet Amlodipine Besylate [Norvasc 5 mg Tablet] 5 mg PO DAILY #30 tablet Forms: Elevated Blood Pressure, Return to Work Referrals: [facility] [Provider Group] - Follow up in 3-5 days
[2019-02-10 13:21] VITALS: BP 177/117
--- NOTE | 2019-02-10 19:14 | EKG REPORT ---
SEVERITY:- ABNORMAL ECG - SINUS RHYTHM NONSPECIFIC T ABNORMALITIES, ANT-LAT LEADS : Confirmed by: Kierra Stearns MD 10-Feb-2019 19:13:55
== END 2019-02-10 13:45 | disposition home or self-care (01) ==
LOC: ER 09:04
DX: R05 Cough (principal); I10 Essential (primary) hypertension
CPT/HCPCS: 93005; 94640; 99285; 36415; 82553; 82550; 85025; 80053; 81001; 84484; 71046; 93010; J7620